=== PATIENT | male | born 1975 | race Caucasian/White ===

== ENCOUNTER 2016-08-09 07:26 | Observation (INO) | payer SELFPAY ==
[~2016-08-09] VITALS: Ht 177.8 cm; Wt 100.0 kg
[2016-08-09] VITALS (9 sets, daily range): BP systolic 135–233; BP diastolic 83–139; PULSE 73–114; RESP 16–22; TEMP 96.2–98.6; O2SAT 97–98
[~2016-08-09 07:26] MED LIST: AMOX500T PO; ASPI325T PO; HYDR-3129 PO; Z.0.WALKERFRONT
[2016-08-09] MEDS ORDERED: SODIUM CHLORIDE 0.9% FLUSH 10 ML FLUSH IVF PRN (07:45)
[2016-08-09] MEDS ORDERED: SODIUM CHLOR 0.9% 1000 ML INJ 1,000 ML IV ONE (07:45)
--- NOTE | 2016-08-09 07:48 | PD ---
HPI Chief Complaint: Neuro Symptoms/ Deficits Time Seen by Provider: 07:37 Travel History International Travel<30 days: No Contact w/Intl Traveler<30days: No Traveled to known affect area: No History of Present Illness HPI 40-year-old male came to the emergency room with history of difficulty speaking since he woke up in the morning at 5:30 AM. Patient says that he went to bed at 12:30 AM and at that point his speech was fine. When he woke up this morning he was having difficulty getting the words out and seemed like he was stammering. He also try to write and was having difficulty writing. This made him really anxious and concerned and he came to the emergency room. Patient seemed intoxicated and upon asking he said that he was drinking heavily last night with his friends. At some point he even did cocaine and this morning did some heroin. His blood sugar upon arrival was 115. Vital signs were stable. He was complaining that his right hand seemed to be cramping. Patient had an unsteady gait but was once again seemed heavily intoxicated. [facility] Past Medical History Narrative Medical List of his past medical, surgical, social and family history was reviewed from the nursing note. Arthritis: Yes Cancer: No Cardiovascular Problems: Yes Diminished Hearing: No Endocrine: No Hypertension: Yes Implanted Vascular Access Dvce: No Musculoskeletal: Yes Respiratory: No Past Surgical History Other Surgery: Yes (right lower leg may) Social History Alcohol Use: Yes (X1 PER WEEK/2 BEERS/LAST INTAKE 1 WK AGO) Tobacco Use: Yes (5 CIGS PER DAY) Substance Use: No Allergies-Medications (Allergen,Severity, Reaction): Coded Allergies: No Known Allergies (Verified , 08/09/16) Comments No known drug allergies. Reported Meds & Prescriptions Reported Meds & Active Scripts Active Narrative Medication List of his home medications reviewed from the nursing note. Review of Systems Except as stated in HPI: all other systems reviewed are Neg Physical Exam Narrative GENERAL: Intoxicated, obese, anxious SKIN: Focused skin assessment warm/dry. Left great toe partial avulsion of the nail from the medial corner with no active bleeding HEAD: Atraumatic. Normocephalic. EYES: Pupils equal and round. No scleral icterus. No injection or drainage. ENT: No nasal bleeding or discharge. Mucous membranes pink and moist. NECK: Trachea midline. No JVD. CARDIOVASCULAR: Regular rate and rhythm. No murmur appreciated. RESPIRATORY: No accessory muscle use. Clear to auscultation. Breath sounds equal bilaterally. GASTROINTESTINAL: Abdomen soft, non-tender, nondistended. Hepatic and splenic margins not palpable. MUSCULOSKELETAL: No obvious deformities. No clubbing. No cyanosis. No edema. NEUROLOGICAL: Awake and alert. No obvious cranial nerve deficits. Motor grossly within normal limits. Normal speech. NIH stroke score was 1 based on the stammering. PSYCHIATRIC: Appropriate mood and affect; insight and judgment normal. Data Data Last Documented VS Vital Signs Date Time Temp Pulse Resp B/P Pulse Ox O2 Delivery O2 Flow Rate FiO2 08/09/16 09:18 96 18 148/94 98 Room Air 08/09/16 07:30 97.5 Orders Electrocardiogram (08/09/16 07:36) Prothrombin Time / Inr (Pt) (08/09/16 07:36) Complete Blood Count With Diff (08/09/16 07:36) Basic Metabolic Panel (Bmp) (08/09/16 07:36) Creatine Kinase (Cpk) (08/09/16 07:36) Drug Screen, Random Urine (08/09/16 07:36) Troponin I (08/09/16 07:36) Urinalysis - C+S If Indicated (08/09/16 07:36) Ct Brain W/O Iv Contrast(Rout) (08/09/16 07:36) Ecg Monitoring (08/09/16 07:36) Iv Access Insert/Monitor (08/09/16 07:36) Oximetry (08/09/16 07:36) Sodium Chloride 0.9% Flush (Ns Flush) (08/09/16 07:45) Alcohol (Ethanol) (08/09/16 07:36) Sodium Chlor 0.9% 1000 Ml Inj (Ns 1000 M (08/09/16 07:45) Mri Brain W/O Contrast (08/09/16 ) Mra Brain W/O Contrast (Cow) (08/09/16 ) Aspirin (Aspirin) (08/09/16 08:30) CKMB (08/09/16 07:40) CKMB% (08/09/16 07:40) Lorazepam Inj (Ativan Inj) (08/09/16 09:30) Admit Order (Ed Use Only) (08/09/16 10:09) Vital Signs (Adult) Q4H (08/09/16 10:07) Neuro Checks Q4H (08/09/16 10:07) Activity Oob With Assistance (08/09/16 10:07) Airbrush Artist / Telemetry .CONTINUOUS (08/09/16 10:07) Sodium Chlor 0.9% 1000 Ml Inj (Ns 1000 M (08/09/16 10:07) Sodium Chloride 0.9% Flush (Ns Flush) (08/09/16 10:15) Sodium Chloride 0.9% Flush (Ns Flush) (08/09/16 21:00) Acetaminophen (Tylenol) (08/09/16 10:15) Ondansetron Inj (Zofran Inj) (08/09/16 10:15) Comprehensive Metabolic Panel (08/10/16 06:00) Complete Blood Count With Diff (08/10/16 06:00) Resp Oxygen Johnson C Titrat 1-4 L (08/09/16 ) Pt Request For Service (08/09/16 10:07) Ot Request For Service (08/09/16 10:07) Enoxaparin Inj (Lovenox Inj) (08/09/16 11:00) Scd Bilateral/Knee High FATOUMATA.BID (08/09/16 10:07) John Bilateral/Knee High FATOUMATA.QSHIFT (08/09/16 10:07) Docusate Sodium-Senna (Estephania-Colace) (08/09/16 21:00) Magnesium Hydroxide Liq (Milk Of Magnesi (08/09/16 10:15) Sennosides (Senokot) (08/09/16 10:15) Bisacodyl Supp (Dulcolax Supp) (08/09/16 10:15) Lactulose Liq (Lactulose Liq) (08/09/16 10:15) Consult Neurology (08/09/16 ) Labs Laboratory Tests Test 08/09/16 08/09/16 07:40 08:45 White Blood Count 7.3 TH/MM3 Red Blood Count 4.46 MIL/MM3 Hemoglobin 10.5 GM/DL Hematocrit 33.5 % Mean Corpuscular Volume 75.2 FL Mean Corpuscular Hemoglobin 23.5 PG Mean Corpuscular Hemoglobin 31.2 % Concent Red Cell Distribution Width 16.7 % Platelet Count 213 TH/MM3 Mean Platelet Volume 9.6 FL Neutrophils (%) (Auto) 70.9 % Lymphocytes (%) (Auto) 21.1 % Monocytes (%) (Auto) 5.9 % Eosinophils (%) (Auto) 0.9 % Basophils (%) (Auto) 1.2 % Neutrophils # (Auto) 5.1 TH/MM3 Lymphocytes # (Auto) 1.5 TH/MM3 Monocytes # (Auto) 0.4 TH/MM3 Eosinophils # (Auto) 0.1 TH/MM3 Basophils # (Auto) 0.1 TH/MM3 CBC Comment DIFF FINAL Differential Comment Prothrombin Time 10.7 SEC Prothromb Time International 1.0 RATIO Ratio Sodium Level 140 MEQ/L Potassium Level 3.5 MEQ/L Chloride Level 107 MEQ/L Carbon Dioxide Level 23.3 MEQ/L Anion Gap 10 MEQ/L Blood Urea Nitrogen 10 MG/DL Creatinine 0.80 MG/DL Estimat Glomerular Filtration 106 ML/MIN Rate Random Glucose 106 MG/DL Calcium Level 8.6 MG/DL Total Creatine Kinase 1100 U/L Creatine Kinase MB 7.0 NG/ML Creatine Kinase MB % 0.6 % Troponin I LESS THAN 0.02 NG/ML Triglycerides Level 401 MG/DL Cholesterol Level 207 MG/DL LDL Cholesterol MG/DL HDL Cholesterol 34.8 MG/DL Cholesterol/HDL Ratio 5.94 RATIO Ethyl Alcohol Level 196 MG/DL Urine Color LIGHT-YELLOW Urine Turbidity CLEAR Urine pH 5.0 Urine Specific [place] 1.010 Urine Protein NEG mg/dL Urine Glucose (UA) NEG mg/dL Urine Ketones NEG mg/dL Urine Occult Blood NEG Urine Nitrite NEG Urine Bilirubin NEG Urine Urobilinogen LESS THAN 2.0 MG/DL Urine Leukocyte Esterase TRACE Urine WBC 4 /hpf Microscopic Urinalysis Comment CATH-CULT NOT IND Urine Opiates Screen NEG Urine Barbiturates Screen NEG Urine Amphetamines Screen NEG Urine Benzodiazepines Screen NEG Urine Cocaine Screen POS Urine Cannabinoids Screen NEG [facility] Medical Decision Making Medical Screen Exam Complete: Yes Emergency Medical Condition: Yes Medical Record Reviewed: Yes Interpretation(s) Twelve-lead EKG was reviewed by me. Normal sinus rhythm, normal axis, nonspecific ST-T wave changes. Heart rate of 99 bpm. Differential Diagnosis CVA, TIA, alcohol intoxication, polysubstance abuse, intracranial bleed Narrative Course 8:[address] is within normal limits. After given patient 1 aspirin. I discussed the case with the neurologist Dr. Banda and she agreed that patient is not a TPA candidate since he is out of the window. The symptoms were noticed by the patient when he woke up at 5:30 and he last thinks he was normal was at 12:30 AM. Also there is a a lot of drugs and alcohol involved. Blood alcohol level was significantly high even at this point. I do not have the urine drug screen since patient has not given me a specimen. He was given a liter of IV fluid bolus. CK is elevated marginally. There is an MRI ordered for him. Awaiting for the test to be done and resulted. Patient will require admission or at least observation. Awaiting for the hospitalist to call back. 9:[address] head is negative. Urine drug screen is positive for cocaine only also patient says that he did do heroin this morning. Awaiting for the hospitalist to call back for admission. Procedures EKG Prior to Arrival: No Diagnosis Primary Impression: TIA (transient ischemic attack) Qualified Code: G45.9 - Transient cerebral ischemia, unspecified type Additional Impressions: Acute alcohol intoxication Qualified Code: F10.929 - Acute alcohol intoxication, with unspecified complication Polysubstance abuse Rhabdomyolysis Qualified Code: M62.82 - Non-traumatic rhabdomyolysis Admitting Information Admitting Physician Requests: Observation Scripts Thiamine HCl (Gnp Vitamin B-1)100 Mg Bxd574 Mg PO DAILY #5 TAB Prov:Semaj Jaramillo 08/10/16 Lisinopril 5 Mg Tab5 Mg PO DAILY #30 TAB Prov:Semaj Jaramillo 08/10/16 Aspirin (Aspirin Low Strength)81 Mg Chew81 Mg CHEW DAILY #30 EA Prov:Semaj Jaramillo 08/10/16 Mally Cartagena MD Aug 09, 2016 07:48
[2016-08-09 08:01] LABS: AUTOMATED NEUTROPHIL # 5.1 TH/MM3 (1.8-7.7); BASOPHIL # 0.1 TH/MM3 (0-0.2); BASOPHIL % 1.2 % (0.0-2.0); EOSINOPHIL # 0.1 TH/MM3 (0-0.4); EOSINOPHIL % 0.9 % (0.0-4.0); HEMATOCRIT 33.5 % (39.0-51.0); HEMO FLAGS DIFF FINAL; LYMPH % 21.1 % (9.0-44.0); LYMPHOCYTE # 1.5 TH/MM3 (1.0-4.8); MEAN CELL VOLUME 75.2 FL (80.0-100.0); MEAN CORPUSCULAR HEMOGLOBIN 23.5 PG (27.0-34.0); MEAN CORPUSCULAR HGB CONC 31.2 % (32.0-36.0); MONO % 5.9 % (0.0-8.0); NEUT % 70.9 % (16.0-70.0); PLATELET COUNT 213 TH/MM3 (150-450); RED BLOOD COUNT 4.46 MIL/MM3 (4.50-5.90); RED CELL DISTRIBUTION WIDTH 16.7 % (11.6-17.2); WHITE BLOOD COUNT 7.3 TH/MM3 (4.0-11.0)
[2016-08-09 08:11] LABS: PROTHROMBIN TIME - PATIENT 10.7 SEC (9.8-11.6)
--- NOTE | 2016-08-09 08:18 | RADRPT ---
EXAM DATE/TIME: 08/09/2016 07:52 [facility] COMPARISON: CT BRAIN W/O CONTRAST, June 03, 2014, 7:26. INDICATIONS : Right sided weakness with altered mental status RADIATION DOSE: 56.38 CTDIvol (mGy) MEDICAL HISTORY : Non-responsive. SURGICAL HISTORY : Non-responsive. ENCOUNTER: Initial ACUITY: 1 day PAIN SCALE: Non-responsive LOCATION: cranial TECHNIQUE: Multiple contiguous axial images were obtained of the head. Using automated exposure control and adj ustment of the mA and/or kV according to patient size, radiation dose was kept as low as reasonably a chievable to obtain optimal diagnostic quality images. FINDINGS: CEREBRUM: The ventricles are normal for age. No evidence of midline shift, mass lesion, hemorrhage or acute in farction. No extra-axial fluid collections are seen. POSTERIOR FOSSA: The cerebellum and brainstem are intact. The 4th ventricle is midline. The cerebellopontine angle i s unremarkable. EXTRACRANIAL: The visualized portion of the orbits is intact. SKULL: The calvaria is intact. No evidence of skull fracture. CONCLUSION: Negative for acute process. Mahesh Ramírez MD FACR on August 09, 2016 at 8:11 Board Certified Radiologist. This report was verified electronically.
[2016-08-09 08:25] LABS: ANION GAP 10 MEQ/L (5-15); BICARBONATE 23.3 MEQ/L (21.0-32.0); BLOOD UREA NITROGEN 10 MG/DL (7-18); CHLORIDE 107 MEQ/L (98-107); GLOMERULAR FILTRATION RATE 106 ML/MIN (>89); POTASSIUM 3.5 MEQ/L (3.5-5.1); SODIUM (NA) 140 MEQ/L (136-145)
[2016-08-09] MEDS ORDERED: ASPIRIN 325 MG TAB PO ONE (08:30)
[2016-08-09 08:38] LABS: CREATINE KINASE 1100 U/L (39-308)
[2016-08-09 09:01] LABS: BLOOD, URINE NEG (NEG); GLUCOSE,URINE NEG (NEG); KETONE, URINE NEG (NEG); NITRITE,URINE NEG (NEG); URINE COLOR LIGHT-YELLOW (YELLW/STRAW)
[2016-08-09 09:02] LABS: COMMENT (UR) CATH-CULT NOT IND; CULTURE IF INDICATED CATH CULTURE NOT IND
[2016-08-09 09:06] LABS: AMPHETAMINE, URINE NEG (NEG); BARBITURATES, URINE NEG (NEG); COCAINE, URINE POS (NEG)
[2016-08-09] MEDS ORDERED: LORazepam 2 MG/ML VIAL IV PUSH ONE (09:30)
[2016-08-09] MEDS ORDERED: BISACODYL 10 MG SUPP RECTAL PRN (10:15)
[2016-08-09] MEDS ORDERED: SENNOSIDES 8.6 MG TAB PO PRN (10:15)
[2016-08-09] MEDS ORDERED: MAGNESIUM HYDROXIDE SUSP 30 ML CUP PO PRN (10:15)
[2016-08-09] MEDS ORDERED: LACTULOSE SYRUP 20 GM/30 ML CUP PO PRN (10:15)
[2016-08-09] MEDS ORDERED: ONDANSETRON HCL 4 MG/2 ML VIAL IVP PRN (10:15)
[2016-08-09] MEDS ORDERED: SODIUM CHLORIDE 0.9% FLUSH 10 ML FLUSH IV FLUSH PRN (10:15)
[2016-08-09] MEDS ORDERED: ACETAMINOPHEN 325 MG TAB PO PRN (10:15)
[2016-08-09] MEDS: SODIUM CHLOR 0.9% 1000 ML INJ 1,000 ML IV SCH ×3 (10:54→23:59)
--- NOTE | 2016-08-09 10:56 | RADRPT ---
EXAM DATE/TIME: 08/09/2016 10:12 [facility] COMPARISON: No previous studies available for comparison. INDICATIONS : Slurred speech. MEDICAL HISTORY : Hypertension. Kidney and liver disease SURGICAL HISTORY : Knee surgery ENCOUNTER: Initial ACUITY: 1 day PAIN SCORE: 0/10 LOCATION: Cranial TECHNIQUE: Multiplanar, multisequence MRI of the brain was performed without contrast. FINDINGS: There is no restricted diffusion evident. Mild periventricular white matter changes are noted. There are no extraaxial fluid collections appre ciated. Posterior fossa is unremarkable, midline fourth ventricle. There is no parenchymal hemorrhage. CONCLUSION: Minimal motion artifact present. This does obscure fine detail. I do not see evidence for an ischemic event. Mahesh Ramírez MD FACR on August 09, 2016 at 10:51 Board Certified Radiologist. This report was verified electronically.
[2016-08-09] MEDS ORDERED: ENOXAPARIN SODIUM 40 MG/0.4 ML SYRINGE SQ SCH (11:00)
--- NOTE | 2016-08-09 11:44 | RADRPT ---
EXAM DATE/TIME: 08/09/2016 10:12 [facility] COMPARISON: No previous studies available for comparison. INDICATIONS : Slurred speech. MEDICAL HISTORY : Hypertension. Renal insufficiency. Liver disease SURGICAL HISTORY : Knee surgery ENCOUNTER: Initial ACUITY: 1 day PAIN SCORE: 0/10 LOCATION: Cranial Please note a normal MRA of the brain does not entirely exclude the possibility of a small aneurysm, nor the possibility of distal intracranial vessel disease. TECHNIQUE: 3D time of flight MRA was performed. Source images, multiplanar STS MIP, and 3D volume MIP reconstru ctions were reviewed. FINDINGS: Moderate atherosclerotic intracranial vascular disease is noted. There is no evidence for aneurysm o r vascular displacement. CONCLUSION: Intracranial atherosclerotic vascular disease. Mahesh Ramírez MD FACR on August 09, 2016 at 11:39 Board Certified Radiologist. This report was verified electronically.
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
[2016-08-09] MEDS ORDERED: LORazepam 1 MG TAB PO PRN (13:30)
[2016-08-09] MEDS ORDERED: LORazepam 2 MG TAB PO PRN (13:30)
[2016-08-09] MEDS ORDERED: cloNIDine HCL 0.1 MG TAB PO PRN (13:30)
[2016-08-09] MEDS ORDERED: FLUMAZENIL 0.5 MG/5 ML VIAL IV PUSH PRN (13:30)
[2016-08-09] MEDS ORDERED: LORazepam 2 MG/ML VIAL IV PUSH PRN ×2 (13:30)
[2016-08-09 14:11] LABS: HDL CHOLESTEROL 34.8 MG/DL (40.0-60.0)
--- NOTE | 2016-08-09 16:38 | OTSOAPIP ---
TIME SESSION COMPLETED: 1529 TREATMENT TIME: 5 MINS. CHART REVIEWED. ATTEMPTED TO SEE PATIENT FOR EVALUATION. UPON ARRIVAL PATIENT SLEEPING. ABLE TO AROUSE HOWEVER IS SLIGHTLY IRRITABLE. EDUCATED PATIENT IN ROLE OF OCCUPATIONAL THERAPY. PATIENT REPORTS HE DOES NOT NEED AND REPORTS HIS SYMPOTOMS HAVE RESOLVED. PATIENT STATES "I'M GETTING READY TO CHECK OUT OF HERE." PATIENT DECLINED OCCUPATIONAL THERAPY EVALUATION. INTERDISCIPLINARY COMMUNICATION: SPOKE WITH CATHERINE STOVER Therapist: Jessa Villarreal OTR/L Signature on file
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
--- NOTE | 2016-08-09 17:18 | ECHRPT ---
Indication: cva/tia CONCLUSIONS Normal left ventricular size.mild concentric left ventricular hypertrophy. poor image qulaity Mild mitral valve regurgitation. There is mild tricuspid valve regurgitation. BP: / HR: 85 Rhythm: Sinus MEASUREMENTS (Male / Female) Normal Values Technical Quality:Fair 2D ECHO LV Diastolic Diameter PLAX 4.6 cm 4.2 - 5.9 / 3.9 - 5.3 cm LV Systolic Diameter PLAX 3.4 cm IVS Diastolic Thickness 1.3 cm 0.6 - 1.0 / 0.6 - 0.9 cm LVPW Diastolic Thickness 1.4 cm 0.6 - 1.0 / 0.6 - 0.9 cm LV Relative Wall Thickness 0.6 RV Internal Dim ED PLAX 2.5 cm M-MODE Aortic Root Diameter MM 2.9 cm LA Systolic Diameter MM 4.3 cm LA Ao Ratio MM 1.5 AV Cusp Separation MM 1.9 cm DOPPLER Mitral E Point Velocity 57.8 cm/s Mitral A Point Velocity 69.6 cm/s Mitral E to A Ratio 0.8 TR Peak Velocity 200.0 cm/s TR Peak Gradient 16.0 mmHg FINDINGS LEFT VENTRICLE Normal left ventricular size.mild concentric left ventricular hypertrophy. The left ventricular systolic function is normal with an estimated ejection fraction in the range of 60-65%. RIGHT VENTRICLE Normal right ventricular size and systolic function. LEFT ATRIUM The left atrial size is normal. RIGHT ATRIUM The right atrial size is normal. ATRIAL SEPTUM Normal atrial septal thickness without atrial level shunting by limited color doppler interrogation. AORTA The aortic root and proximal ascending aorta are normal in size on limited imaging. MITRAL VALVE Structurally normal mitral valve. Mild mitral valve regurgitation. AORTIC VALVE Trileaflet aortic valve. No aortic valve stenosis or regurgitation. TRICUSPID VALVE Structurally normal tricuspid valve. There is mild tricuspid valve regurgitation. PULMONARY VALVE The pulmonary valve is not well visualized. VESSELS The inferior vena cava is normal in size. PERICARDIUM No pericardial effusion. Monico Vasquez MD, FACC, FSCAI (Electronically Signed) Final Date:09 August 2016 17:17
[2016-08-09] MEDS: LISINOPRIL 5 MG TAB PO SCH (18:10)
--- NOTE | 2016-08-09 19:41 | RADRPT ---
EXAM DATE/TIME: 08/09/2016 13:59 [facility] COMPARISON: No previous studies available for comparison. INDICATIONS : Transient ischemic attack. MEDICAL HISTORY : Myocardial infarction. Hypertension. Arthritis. ETOH use. Polysubstance abuse. SURGICAL HISTORY : Right foot surgery. Right knee surgery. Neck surgery. Back surgery. ENCOUNTER: Initial ACUITY: 1 day PAIN SCORE: 0/10 LOCATION: Bilateral neck PEAK SYSTOLIC VELOCITIES (cm/sec): ICA/CCA RATIO: Right: 0.9 Left: 0.7 ICA: Right: 107 Left: 73 CCA: Right: 124 Left: 98 ECA: Right: 82 Left: 67 VERTEBRAL: Right: 50 antegrade Left: 55 antegrade Elevated flow velocities and ICA/CCA ratios have been found to correlate with increased degrees of vessel stenosis, calculated as percentage of diameter relative to a normal segment of distal ICA/CCA FINDINGS: RIGHT CAROTID: No significant stenosis is visualized. The waveforms are within normal limits. LEFT CAROTID: No significant stenosis is visualized. The waveforms are within normal limits. VERTEBRAL ARTERIES: Antegrade flow is seen in both vertebral arteries. MISCELLANEOUS: None. CONCLUSION: No evidence of hemodynamically significant carotid stenosis. Dom Martinez MD on August 09, 2016 at 19:38 Board Certified Radiologist. This report was verified electronically.
[2016-08-09] MEDS ORDERED: DOCUSATE SODIUM 50 MG/SENNA 8.6 MG TAB PO SCH (21:00)
[2016-08-09] MEDS: SODIUM CHLORIDE 0.9% FLUSH 10 ML FLUSH IV FLUSH SCH (21:00)
--- NOTE | 2016-08-09 22:23 | EKG ---
Date Performed: 08/09/2016 Time Performed: 07:46:39 PTAGE: 40 years EKG: Sinus rhythm NORMAL ECG NO PREVIOUS TRACING DOCTOR: Rand Novak Interpretating Date/Time 08/09/2016 22:22:37
[2016-08-10 00:53] VITALS: PULSE 71
[2016-08-10 01:32] VITALS: O2SAT 98
[2016-08-10 03:21] VITALS: BP 137/96; PULSE 72; RESP 16; TEMP 96.3; O2SAT 95
[2016-08-10] MEDS: SODIUM CHLOR 0.9% 1000 ML INJ 1,000 ML IV SCH (06:39)
[2016-08-10 07:50] LABS: AUTOMATED NEUTROPHIL # 2.6 TH/MM3 (1.8-7.7); BASOPHIL # 0.1 TH/MM3 (0-0.2); BASOPHIL % 1.5 % (0.0-2.0); EOSINOPHIL # 0.1 TH/MM3 (0-0.4); EOSINOPHIL % 2.9 % (0.0-4.0); HEMO FLAGS DIFF FINAL; MEAN CELL VOLUME 74.7 FL (80.0-100.0); MEAN CORPUSCULAR HEMOGLOBIN 23.9 PG (27.0-34.0); NEUT % 63.6 % (16.0-70.0); PLATELET COUNT 168 TH/MM3 (150-450); RED BLOOD COUNT 4.15 MIL/MM3 (4.50-5.90); RED CELL DISTRIBUTION WIDTH 16.8 % (11.6-17.2); WHITE BLOOD COUNT 4.1 TH/MM3 (4.0-11.0)
[2016-08-10 08:03] VITALS: BP 137/93; PULSE 77; RESP 17; TEMP 97.7; O2SAT 98
[2016-08-10 08:23] LABS: ALT (GPT) 54 U/L (12-78); ANION GAP 7 MEQ/L (5-15); AST (GOT) 40 U/L (15-37); BICARBONATE 26.5 MEQ/L (21.0-32.0); BLOOD UREA NITROGEN 6 MG/DL (7-18); CHLORIDE 107 MEQ/L (98-107); GLOMERULAR FILTRATION RATE 130 ML/MIN (>89); POTASSIUM 3.8 MEQ/L (3.5-5.1); SODIUM (NA) 140 MEQ/L (136-145)
[2016-08-10 08:26] LABS: ALKALINE PHOSPHATASE 80 U/L (45-117); CREATINE KINASE 448 U/L (39-308); TOTAL BILIRUBIN ADULT 0.2 MG/DL (0.2-1.0)
[2016-08-10 08:40] LABS: CKMB 3.2 NG/ML (0.5-3.6)
[2016-08-10] MEDS ORDERED: LISI-519 PO (08:44)
[2016-08-10] MEDS ORDERED: ASPI81CH25 CHEW (08:44)
[2016-08-10] MEDS ORDERED: GNP100TA3 PO (08:44)
--- NOTE | 2016-08-10 08:52 | HHI.PR ---
Subjective Remarks Follow-up for probable TIA. The patient is feeling well today. He denies any surgeries, swallowing difficulties, weakness. Has been ambulating without difficulties. He has no acute complaints today and wants to go home. Objective Vitals Vital Signs Date Time Temp Pulse Resp B/P Pulse Ox O2 Delivery O2 Flow Rate FiO2 08/10/16 08:03 97.7 77 17 137/93 98 08/10/16 03:21 96.3 72 16 137/96 95 08/10/16 01:32 98 08/10/16 00:53 71 08/09/16 23:37 96.2 73 16 139/94 97 08/09/16 20:14 98.2 77 18 160/91 97 08/09/16 16:02 97.6 87 18 151/84 98 08/09/16 12:00 98.6 88 20 138/83 98 08/09/16 10:55 87 16 145/107 97 Room Air 08/09/16 10:44 98 08/09/16 09:18 96 18 148/94 98 Room Air Result Diagram: 08/10/16 0734 08/10/16 0734 Imaging Last Impressions Head CT 08/09/16 0736 Signed Impressions: Service Date/Time: Tuesday, August 09, 2016 07:52 - CONCLUSION: Negative for acute process. Maehsh Ramírez MD FACR Head Magnetic Resonance Angiography 08/09/16 0000 Signed Impressions: Service Date/Time: Tuesday, August 09, 2016 10:12 - CONCLUSION: Intracranial atherosclerotic vascular disease. Mahesh Ramírez MD FACR Carotid Artery Ultrasound 08/09/16 0000 Signed Impressions: Service Date/Time: Tuesday, August 09, 2016 13:59 - CONCLUSION: No evidence of hemodynamically significant carotid stenosis. Dom Martinez MD Brain MRI 08/09/16 0000 Signed Impressions: Service Date/Time: Tuesday, August 09, 2016 10:12 - CONCLUSION: Minimal motion artifact present. This does obscure fine detail. I do not see evidence for an ischemic event. Mahesh Ramírez MD FACR Objective Remarks GENERAL: Well-developed well-nourished. In no acute distress. SKIN: Warm and dry. No lesions noted. HEENT: Normocephalic. Pupils equal and round. Mucous membranes pink and moist. CARDIOVASCULAR: Regular rate and rhythm. No murmur appreciated. RESPIRATORY: No accessory muscle use. Clear to auscultation. Breath sounds equal bilaterally. GASTROINTESTINAL: Abdomen soft, non-tender, nondistended. Bowel sounds x4. MUSCULOSKELETAL: No obvious deformities. No clubbing or cyanosis. No edema. NEUROLOGICAL: Awake and alert. No focal neurological deficits. Moves upper and lower extremities spontaneously. Normal speech. Strength 5/5. PSYCHIATRIC: Appropriate mood and affect; insight and judgment normal. A/P Assessment and Plan 40-year-old male with a past medical history of abdominal cancer and polysubstance abuse who presented for slurred speech TIA: Possibly secondary to hypertension, BP 233/139 at arrival, vs cocaine and alcohol use. Neurology was contacted from the ED. Passed swallow eval. BP now within normal limits. Reviewed: EtOH level 196 at admission. UDS positive for cocaine. CPK 1100. Head CT negative for acute process. Brain MRI with some motion artifact, but no definite acute process. Brain MRA with moderate atherosclerotic disease present. Telemetry unremarkable to date. Echocardiogram with mild concentric LVH and normal systolic function, EF 6065 %. Carotid ultrasound with no significant stenosis. -Neurology consulted, appreciate input -Monitor on telemetry -Started aspirin Moderate rhabdomyolysis: CPK 1100. Likely secondary to cocaine. Currently asymptomatic. Renal function stable. CPK improved to 448 with aggressive IVF. Improved. Recommended the patient hydrate well orally. Polysubstance abuse: Toxicology as above. Patient counseled extensively on cessation. Covered with CIWA protocol, no signs of withdrawal. Thiamine. Hypertension: Accelerated on admission which spontaneously improved, likely exacerbated by cocaine. Signs of LVH on echocardiogram. Started on lisinopril. BP much better controlled. Clonidine as needed. Hyperlipidemia: Lipid profile with high triglycerides, low HDL, and unquantifiable LDL. Recommended the patient follow up with PCP as outpatient to consider statin therapy after rhabdomyolysis resolved. DVT prophylaxis: Lovenox Discharge Planning Discharge patient to home Condition on discharge: Improved Heart healthy Diet as tolerated Regular activity Rx written: Aspirin, lisinopril Follow-up with primary care physician Semaj Jaramillo Aug 10, 2016 08:52
[2016-08-10] MEDS: LISINOPRIL 5 MG TAB PO SCH (08:55)
[2016-08-10] MEDS: SODIUM CHLORIDE 0.9% FLUSH 10 ML FLUSH IV FLUSH SCH (08:56)
[2016-08-10] MEDS ORDERED: THIAMINE HCL 100 MG TAB PO SCH (09:00)
[2016-08-10] MEDS ORDERED: MULTIVITAMINS/MINERALS THERAPEUTIC TAB PO SCH (09:00)
[2016-08-10] MEDS ORDERED: FOLIC ACID 1 MG TAB PO SCH (09:00)
[2016-08-10] MEDS ORDERED: ASPIRIN 81 MG CHEW TAB CHEW SCH (09:00)
== END 2016-08-10 11:22 | disposition home or self-care (01) ==
LOC: NEPC 07:26 → NEDA 10:17 → NEPHCDU 12:06
PROVIDERS: ADMIT Hospitalist; ATTEND Hospitalist
DX: G45.9 Transient cerebral ischemic attack, unspecified (principal); M62.82 Rhabdomyolysis; F10.129 Alcohol abuse with intoxication, unspecified; F14.10 Cocaine abuse, uncomplicated; F11.10 Opioid abuse, uncomplicated; C22.8 Malignant neoplasm of liver, primary, unspecified as to type; C17.9 Malignant neoplasm of small intestine, unspecified; C64.2 Malignant neoplasm of left kidney, except renal pelvis; I99.8 Other disorder of circulatory system; I10 Essential (primary) hypertension; E78.5 Hyperlipidemia, unspecified; M17.11 Unilateral primary osteoarthritis, right knee; F17.210 Nicotine dependence, cigarettes, uncomplicated; E66.9 Obesity, unspecified; Y90.6 Blood alcohol level of 120-199 mg/100 ml
CPT/HCPCS: 70450; 70544; 70551; 80048; 80053; 80061; 80307; 81001; 82550; 82552; 84484; 85025; 85610; 93005; 93306; 93880; 96361; 96374; 99285; G0378; J1650; J2060; J7030